=== PATIENT | female | born 1990 | race Caucasian/White ===

== ENCOUNTER 2022-10-24 16:04 | Emergency (ER) | payer OTHER, SELFPAY ==
[2022-10-24 16:06] VITALS: BP 145/112; PULSE 100; RESP 16; TEMP 36.4; O2SAT 99; BMI 64.5
--- NOTE | 2022-10-24 16:27 | ED.VIS.BACK ---
HPI History of Present Illness Chief Complaint: Back Narrative Narrative: 32-year-old female past medical history of depression and hypertension presents with left mid back pain after coughing today approximately 3 hours ago. She states that she was having left sided rib pain/mid back pain over the weekend a few days ago, but when she coughed today, she felt a pop in her left posterior rib cage and has pain that is worse with movement. She denies any increasing shortness of breath, no fever, and she has had a chronic cough for months. She states that she had COVID twice and her lungs never recovered well. No fevers or chills. No other symptoms. She took Excedrin x2 without relief. [facility] Medical History (Updated 10/24/22 @ 17:44 by Noel Rowe MD) GERD (gastroesophageal reflux disease) Hypertension Home Medications amlodipine 5 mg tablet 5 mg PO DAILY 10/24/22 [History Last Taken Unknown] bupropion HCl 100 mg tablet 150 mg PO BID 10/24/22 [History Last Taken Unknown] hydrocodone-acetaminophen 5-325mg 5mg-325mg 1 tab PO Q6H PRN pain 3 days #12 tabs 10/24/22 [Rx Last Taken Unknown] omeprazole 40 mg capsule,delayed release 40 mg PO DAILY 10/24/22 [History Last Taken Unknown] Allergy/AdvReac Type Severity Reaction Status Date / Time No Known Allergies Allergy Verified 10/24/22 16:06 Social History Smoking Status: Never smoker ROS ROS ED ROS Narrative Constitutional: No fever, no chills. HEENT: No sore throat. No neck pain. No loss of vision. No rhinorrhea. Cardiovascular: No chest pain. No palpitations. No pedal edema. Respiratory: No cough, no shortness of breath. Abdominal: No abdominal pain. No nausea. No vomiting. Genitourinary: No dysuria. No hematuria. Musculoskeletal: No myalgias. No arthralgias. Left posterior rib pain, left mid back pain. Neurologic: No headaches. No dizziness. No lightheadedness. Skin: No rash. No change in color. Psychiatric: No depression. No anxiety. EXAM Physical Exam Narrative Exam Narrative: Afebrile. Vital signs noted. HEENT: Normocephalic. Atraumatic. PERRL, EOMI. Neck soft and supple. No point tenderness or step off. Cardiovascular: Regular rate and rhythm. No murmurs, rubs, or gallops appreciated. Mild tenderness to palpation left posterior rib #9 and 10, no crepitance. No lumbar or thoracic spine tenderness or step-off. Respiratory: No tachypnea. Lungs clear to auscultation bilaterally. Gastrointestinal: Abdomen soft, nontender, with normoactive bowel sounds. No rebound or guarding. Neurological: Awake. Alert. Nonfocal, nonlateralizing. Skin: No rash. Normal color. No pallor. Musculoskeletal: No pedal edema. Full range of motion extremities. Const Vital Signs: 10/24/22 16:06 Temperature 97.6 F L Temperature Source Temporal Pulse Rate 100 Respiratory Rate 16 Blood Pressure 145/112 H Blood Pressure Mean 123 Pulse Ox 99 Oxygen Delivery Method Room Air MDM MDM MDM Narrative Medical decision making narrative: In the area where she is most tender, there is more rib tenderness. She could have had a broken rib from coughing. In the differential is also intercostal strain versus rib separation. She was given 1 Bush tablet for analgesia. Her pulse ox is 99% on room air so lower in the differential is pneumothorax. Left rib x-rays with chest x-ray were obtained and interpreted by myself. I see no evidence of pneumothorax or fracture on ribs 1 through 10. I reviewed the radiology report and there is a posttraumatic deformity of the left 11th rib of uncertain chronicity. This is not necessarily the place where she has the most tenderness, but it is on a floating rib. She was given a prescription for Bush for the next 3 days and recommended that she follow-up with a primary care provider. Additionally, she was given a note to be off work for the next 3 days and then with limited bending and lifting secondary to her rib fracture as I am unable to write for her to be 4 weeks off at a time. I feel she be discharged safely home with follow-up. This is more of a floating rib fracture and may be chronic. Disposition is discharged home in stable condition. Return instructions were reviewed. Radiography Diagnostic Testing: Clinical Impression(s) from Imaging Studies Ribs w/Chest X-Ray 10/24/22 16:48 IMPRESSION: RIBS: Posttraumatic deformity of the left 11th rib of uncertain chronicity CHEST: No acute cardiopulmonary pathology. Electronically Signed: King Bernal MD at 17:11 EST , Discharge Plan Triage Chief Complaint: Back ED Provider: Noel Rowe Dx/Rx/DC Orders Clinical Impression: Left rib fracture, Left-sided thoracic back pain Instructions: ED Back Pain (Acute or Chronic), ED Rib Fracture Prescriptions: New hydrocodone-acetaminophen 5-325 mg tablet 1 tab PO Q6H PRN (Reason: pain) 3 Days Qty: 12 0RF No Action amlodipine 5 mg Tablet 5 mg PO DAILY omeprazole 40 mg Capsule,Delayed Release(Dr/Ec) 40 mg PO DAILY bupropion HCl [Wellbutrin] 100 mg Tablet 150 mg PO BID Stand Alone Forms: ED Work / School Excuse Primary Care Provider: Care Physician,No Primary Referrals: NOT,DEFINED [Non-Staff] - Disposition Disposition: Home, Self Care
[2022-10-24] MEDS: HYDROcodone Bitartrate/Apap 5/325 Tablet PO (16:30)
--- NOTE | 2022-10-24 16:48 | RAD_ITS ---
STUDY: X-RAY - UNILATERAL RIBS ( LEFT ) WITH CHEST REASON FOR EXAM: Female, 32 years old. rib pain TECHNIQUE - RIBS: 4 view(s) of the ribs. TECHNIQUE - CHEST: PA COMPARISON: None. FINDINGS - RIBS: There is posttraumatic deformity of the left 11th rib of uncertain chronicity only visualized on one view. FINDINGS - CHEST: The lungs are clear and expanded. There is no demonstrated pleural abnormality. Normal size heart. Normal mediastinum and isatu. Normal visualized pulmonary arteries. Normal visualized aortic arch and descending thoracic aorta. Normal visualized thoracic spine. Normal visualized, clavicles, and shoulders. There is no demonstrated abnormality of the visualized soft tissue structures of the upper abdomen. RAD/Ribs Uni Min 3V w/PA Chest IMPRESSION: RIBS: Posttraumatic deformity of the left 11th rib of uncertain chronicity CHEST: No acute cardiopulmonary pathology. Electronically Signed: King Bernal MD at 17:11 EST ,
== END 2022-10-24 18:08 | disposition home or self-care (01) ==
PROVIDERS: Emergency Provider Emergency Medicine; Visit Provider Emergency Medicine
DX: S22.32XA Fracture of one rib, left side, initial encounter for closed fracture (principal); I10 Essential (primary) hypertension; X50.9XXA Other and unspecified overexertion or strenuous movements or postures, initial encounter
CPT/HCPCS: 71101; 99282